=== PATIENT | male | born 1980 | race African-American/Black ===

== ENCOUNTER 2016-06-05 17:08 | Emergency (ER) | payer BC ==
[2016-06-05 17:14] VITALS: BP 142/84
--- NOTE | 2016-06-05 17:18 | ER Document Report ---
ED Medical Screen (RME) - General Stated Complaint: LEFT EYE IRRITATION Notes: Patient is a 35-year-old male presents emergency Department complaining of left eye irritation. Patient states that he woke up this morning and fell acute something in his eye. He is not a contact wearer. 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 A comprehensive ED assessment and evaluation of the patient, analysis of test results and completion of the medical decision making process will be conducted by additional ED providers. TRAVEL OUTSIDE OF THE [place] IN LAST 30 DAYS: No - Related Data Allergies/Adverse Reactions: No Known Allergies Allergy (Verified 06/05/16 17:16) Physical Exam - Vital signs Vitals: Temp Pulse Resp BP Pulse Ox 97.7 F 68 16 142/84 H 100 06/05/16 17:13 06/05/16 17:13 06/05/16 17:13 06/05/16 17:13 06/05/16 17:13 Course - Vital Signs Vital signs: Temp Pulse Resp BP Pulse Ox 97.7 F 68 16 142/84 H 100 06/05/16 17:13 06/05/16 17:13 06/05/16 17:13 06/05/16 17:13 06/05/16 17:13
[2016-06-05] MEDS ORDERED: KETOROLAC TROMETHAMINE 0.45% 4 DROP/0.4 ML DROPERETTE OS ONE (17:55)
[2016-06-05] MEDS ORDERED: POLYMYXIN B SULFATE/TMP OPH SOLN (10 ML/ER DISP) OS ONE (17:55)
--- NOTE | 2016-06-05 18:04 | ER Document Report ---
ED Eye Complaint - General Mode of Arrival: Ambulatory Information source: Patient TRAVEL OUTSIDE OF THE [place] IN LAST 30 DAYS: No - HPI Patient complains to provider of: left eye irritation Onset: This morning Associated symptoms: Other - See above - General Chief Complaint: Eye Problem Stated Complaint: LEFT EYE IRRITATION Notes: Patient is a 35 year old male who presents to the emergency department complaining of irritation to his left eye. 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 This morning patient states he woke up and felt like there was scratching to the eye and also noted swelling of the left eyelid. (KAIN HO) - Related Data Allergies/Adverse Reactions: No Known Allergies Allergy (Verified 06/05/16 17:16) Past Medical History - General Information source: Patient - Social History Smoking Status: Current Every Day Smoker Chew tobacco use (# tins/day): No Frequency of alcohol use: Occasional Drug Abuse: None Family History: Reviewed & Not Pertinent Patient has suicidal ideation: No Patient has homicidal ideation: No Review of Systems - Review of Systems Constitutional: No symptoms reported EENT: See HPI, Eye pain, Other - Eye swelling Cardiovascular: No symptoms reported Respiratory: No symptoms reported Gastrointestinal: No symptoms reported Genitourinary: No symptoms reported Male Genitourinary: No symptoms reported Musculoskeletal: No symptoms reported Skin: No symptoms reported Hematologic/Lymphatic: No symptoms reported Neurological/Psychological: No symptoms reported -: Yes All other systems reviewed and negative Physical Exam - Vital signs Interpretation: Normal - General General appearance: Appears well, Alert - HEENT Head: Normocephalic, Atraumatic Eyes: Other - Redness to left eye with upper lid swollen, minimal ptosis - Respiratory Respiratory status: No respiratory distress - Extremities General upper extremity: Normal inspection General lower extremity: Normal inspection - Neurological Neuro grossly intact: Yes Cognition: Normal Orientation: AAOx4 [place] Coma Scale Eye Opening: Spontaneous Connie Coma Scale Verbal: Oriented [place] Coma Scale Motor: Obeys Commands [place] Coma Scale Total: 15 Speech: Normal - Psychological Associated symptoms: Normal affect, Normal mood - Skin Skin Temperature: Warm Skin Moisture: Dry Skin Color: Normal Course - Re-evaluation Re-evalutation: 06/05/16 18:19 PROCEDURE: The left eye was anesthetized with tetracaine drops. Fluorescein dye was placed in the eye for black light exam. There was a hazy numbness noted to the corneal surface but no definite abrasions seen. There were some areas of uptake in the sclera most noted possibly in the lateral aspect where there was the most erythema. Fluorescein stain was irrigated out with normal saline. Intraocular pressure was checked with a reading of 19. Homatropine drops were placed in the left eye. Ketorolac drops were placed in the left eye. Polymyxin sulfate drops were placed in the left eye. (NORMAN BUTLER) - Vital Signs Vital signs: Temp Pulse Resp BP Pulse Ox 97.7 F 68 16 142/84 H 100 06/05/16 17:13 06/05/16 17:13 06/05/16 17:13 06/05/16 17:13 06/05/16 17:13 Discharge - Discharge Clinical Impression: Conjunctivitis Qualifiers: Conjunctivitis type: acute Acute conjunctivitis type: unspecified Laterality: left Qualified Code(s): H10.32 - Unspecified acute conjunctivitis, left eye Disposition: HOME, SELF-CARE Additional Instructions: Corneal Abrasion: You have irritation of your sclera and possibly a corneal abrasion, a scratch on the surface of the eye. The pain of a corneal abrasion feels like a sharp particle in the eye. The inflammation of the sclera may cause an itching sensation, or a burning or sharp stabbing sensation Usually, antibiotics are placed in the eye to prevent infection. Occasionally, medication will be placed in the eye to dilate the pupil. This is done to relieve some of your discomfort and is only temporary. Pain medication may be required. Don't drive or operate machinery until you have the use of both your eyes. The abrasion usually is healed in one or two days. A follow-up examination to confirm healing is recommended. Call the doctor or return at once if you develop severe pain, decreasing vision, eye swelling, or purulent drainage. PUT THE KETOROLAC DROPS--ONE DROP EVERY FOUR HOURS IN THE LEFT EYE. PUT THE POLYMIXIN SULFATE DROPS IN THE LEFT EYE--ONE DROP EVERY 2 HOURS TODAY, THEN EVERY FOUR HOURS FOR A FEW DAYS. AVOID WIND AND SUNLIGHT. APPLY COOL COMPRESSES TO THE LEFT EYE. REST. FOLLOW UP WITH AN EYE DOCTOR TUESDAY IF NOT IMPROVING. Prescriptions: Ketorolac Tromethamine [Acular] 1 drop OS Q4 PRN #5 ml PRN Reason: Scribe Attestation: 06/05/16 18:27 I personally performed the services described in the documentation, reviewed and edited the documentation which was dictated to the scribe in my presence, and it accurately records my words and actions. (NORMAN BUTLER) Scribe Documentation - Scribe Written by Jeny:: jeny Calvo, 06/05/16, 2687 acting as scribe for :: Lisseth
== END 2016-06-05 19:00 | disposition home or self-care (01) ==
LOC: ER 17:08
DX: H10.32 Unspecified acute conjunctivitis, left eye (principal); H57.12 Ocular pain, left eye; F17.200 Nicotine dependence, unspecified, uncomplicated
CPT/HCPCS: 99283; J3490